=== PATIENT | male | born 1950 ===

== ENCOUNTER → 2020-03-12 | Outpatient (CLI) | payer OTHER, MEDICARE ==
[~2020-03-12] MED LIST: CATHETER FLUSH 10 ML SYR IV PRN; HOLD METFORMIN - RECEIVED CONTRAST 20 ML VIAL IV SCH; IOHEXOL 350 MG/ML 100 ML (OMNIPAQUE 350) VIAL IV ONE; NS 100 ML (IVPB) BAG IV ONE
[2020-03-12 09:13] LABS: BUN/CREATININE RATIO 17; CREATININE SERUM 0.86 MG/DL (0.60-1.30); GFR ESTIMATED > 60
--- NOTE | 2020-03-12 10:30 | Diagnostic Imaging Report ---
PROCEDURE: CT neck soft tissue with contrast. TECHNIQUE: Multiple contiguous axial images were obtained through the neck after the administration of contrast. Auto Exposure Controls were utilized during the CT exam to meet ALARA standards for radiation dose reduction. INDICATION: Cough. COMPARISON: No prior studies are available for comparison. The visualized intracranial structures are unremarkable. The posterior nasopharynx is unremarkable. There is some thickening of the oropharyngeal mucosa bilaterally but no discrete mass or fluid collection is identified. Parapharyngeal fat planes are preserved. Epiglottis and larynx appear to be unremarkable. No thyroid mass is detected. Bilateral submandibular and parotid glands appear to be symmetric bilaterally. The carotid, parotid and restoration technician spaces are unremarkable. No cervical lymphadenopathy is seen. No supraclavicular lymphadenopathy is identified. IMPRESSION: There is some generalized thickening of the oropharyngeal mucosa, nonspecific and can be seen with pharyngitis. Correlation clinically is recommended. No discrete mass or evidence of cervical lymphadenopathy is identified. Dictated by: Dictated on workstation # [id number]
== END ==
LOC: RAD 10:15
PROVIDERS: ATTEND Otolaryngology Otolaryngology/Facial Plastic Surgery
DX: R05 Cough (principal); J39.2 Other diseases of pharynx
CPT/HCPCS: 36415; 70491; 82565; 84520